=== PATIENT | female | born 1995 | race Caucasian/White ===

== ENCOUNTER 2020-07-21 17:46 | Emergency (ER) | payer OTHER ==
[~2020-07-21 17:46] MED LIST: LORTAB 5-325 M1 EACH PO
[2020-07-21] MEDS ORDERED: LODINE CAP 300300 MG PO (19:34)
== END 2020-07-21 19:41 | disposition home or self-care (01) ==
LOC: ER1 17:46
DX: S52.612A Displaced fracture of left ulna styloid process, initial encounter for closed fracture (principal); F17.210 Nicotine dependence, cigarettes, uncomplicated; J44.9 Chronic obstructive pulmonary disease, unspecified; Z88.0 Allergy status to penicillin; Z86.19 Personal history of other infectious and parasitic diseases; W22.8XXA Striking against or struck by other objects, initial encounter; Y92.009 Unspecified place in unspecified non-institutional (private) residence as the place of occurrence of the external cause
CPT/HCPCS: 29125; 73090; 73110; 99283

== ENCOUNTER 2020-11-17 10:56 | Emergency (ER) | payer OTHER ==
[~2020-11-17 10:56] MED LIST changes: +LODINE CAP 300300 MG PO
[2020-11-17] MEDS ORDERED: IBU800 MG PO (16:00)
== END 2020-11-17 16:16 | disposition home or self-care (01) ==
LOC: ER1 10:56
DX: S06.9X1A Unspecified intracranial injury with loss of consciousness of 30 minutes or less, initial encounter (principal); S66.912A Strain of unspecified muscle, fascia and tendon at wrist and hand level, left hand, initial encounter; S40.011A Contusion of right shoulder, initial encounter; M54.2 Cervicalgia; M54.9 Dorsalgia, unspecified; F19.10 Other psychoactive substance abuse, uncomplicated; Z88.0 Allergy status to penicillin; F17.210 Nicotine dependence, cigarettes, uncomplicated
CPT/HCPCS: 70450; 72125; 72128; 72131; 73030; 73110; 84703; 99284

== ENCOUNTER 2021-09-14 05:04 | Emergency (ER) | payer OTHER ==
[~2021-09-14 05:04] MED LIST changes: +IBU800 MG PO
[2021-09-14 06:20] LABS: HEMOGLOBIN 8.7 gm/dl (12.3-15.3); RED BLOOD COUNT 3.94 M/UL (4.00-5.10); WHITE BLOOD COUNT 10.7 K/UL (4.5-11.0)
[2021-09-14 06:41] LABS: BUN/CREATININE RATIO 11 (0-10)
== END 2021-09-14 08:14 | disposition short-term general hospital (02) ==
LOC: ER1 05:04
PROVIDERS: Family Medicine
DX: F11.20 Opioid dependence, uncomplicated (principal); Z20.822 Contact with and (suspected) exposure to COVID-19; F17.200 Nicotine dependence, unspecified, uncomplicated; Z71.51 Drug abuse counseling and surveillance of drug abuser
CPT/HCPCS: 80053; 80307; 81001; 83690; 85025; 99285; J7030; U0002

== ENCOUNTER 2021-11-02 13:31 | Outpatient (CLI) | payer OTHER | END 2021-11-02 18:44 | disposition home or self-care (01) | LOC: GENOP 13:31 | PROVIDERS: Obstetrics & Gynecology | DX: O26.893 Other specified pregnancy related conditions, third trimester (principal); R10.9 Unspecified abdominal pain; M54.9 Dorsalgia, unspecified; Z3A.35 35 weeks gestation of pregnancy | CPT/HCPCS: 80307; 81001; 96360; 96361 ==